=== PATIENT | male | born 1985 | race Caucasian/White ===

== ENCOUNTER 2021-01-27 19:57 | Emergency (ER) | payer OTHER ==
[~2021-01-27] VITALS: Ht 170.2 cm; Wt 77.1 kg
[2021-01-27] MEDS ORDERED: CLIN300 PO (21:07)
== END 2021-01-27 21:17 | disposition home or self-care (01) ==
LOC: ER 19:57
DX: K04.7 Periapical abscess without sinus (principal); F17.200 Nicotine dependence, unspecified, uncomplicated
CPT/HCPCS: 41800; 99283-25; A9270